=== PATIENT | male | born 2000 | race Caucasian/White ===

== ENCOUNTER 2020-02-29 14:45 | Emergency (ER) | payer OTHER ==
[~2020-02-29] VITALS: Ht 172.7 cm; Wt 62.6 kg
[2020-02-29] MEDS ORDERED: CLEOCIN HCL300 MG PO (15:23)
[2020-02-29] MEDS ORDERED: NORCO 5-325 TA1 EAC2 PO (15:23)
[2020-02-29 15:32] VITALS: BP 130/70
== END 2020-02-29 15:32 | disposition home or self-care (01) ==
LOC: M.ERS 14:45
DX: K02.9 Dental caries, unspecified (principal); Z88.1 Allergy status to other antibiotic agents; Z88.8 Allergy status to other drugs, medicaments and biological substances